=== PATIENT | female | born 1990 | race African-American/Black ===

== ENCOUNTER 2016-11-18 09:34 | Emergency (ER) | payer OTHER ==
[~2016-11-18] VITALS: Ht 165.1 cm; Wt 91.6 kg
--- NOTE | ~2016-11-18 | EKG ---
PATIENT: SHERI BUITRAGO UNIT #: [id number] Ventricular Rate: 75 BPM Atrial Rate: 75 BPM P-R Interval: 146 ms QRS Duration: 84 ms Q-T Interval: 372 ms QTC Calculation(Bezet): 415 ms P [place]: 27 degrees Calculated R [place]: 67 degrees Calculated T [place]: 27 degrees Diagnosis Line: Normal sinus rhythm Diagnosis Line: Normal ECG Diagnosis Line: No previous ECGs available Diagnosis Line: Confirmed by THEODORE COKER MD ([id number]) on Diagnosis Line: 11/19/2016 5:04:03 PM INTERPRETING MD: JOHN PAUL CASSIDY
--- NOTE | ~2016-11-18 | CR63 ---
[facility] A Service of [facility] RADIOLOGY TEXT RESULTS PATIENT: SHERI BUITRAGO LOCATION: [facility] : 90 UNIT #: [id number] AGE: [address]: Jessica Meyer SEX: F ORDER DR: [id number] [facility] [address] [place], [place] [address] [id number] E MR#: [id number] Acc #: [id number] NAME: SHERI BUITRAGO. : 1990 SEX: F STUDY DATE/TIME: 11/18/2016 UNIT: [facility] ROOM: STUDY DESCRIPTION: CR Chest 2 View Attending Physician: Jessica Meyer Pa-C Ordering Physician: Jessica Meyer Pa-C MEDICAL IMAGING REPORT This report is preliminary unless electronic signature is present EXAM Chest 2 views 11/18/2016 1106 hours HISTORY 26-year-old woman complaining of chest pain and shortness of air this morning. COMPARISON None. FINDINGS Upright PA and lateral views of the chest demonstrate normal cardiac, mediastinal and hilar contours. The lungs are clear. There is no pleural effusion or pneumothorax. IMPRESSION No acute cardiopulmonary findings. Dictated by... Ava Mchugh M.D. THIS IS AN ELECTRONICALLY VERIFIED REPORT Ava Mchugh M.D. at 11/18/2016 6:53 PM MARKUS/charles TD: 11/18/2016 17:15 JOB #: [id number] MEDICAL IMAGING REPORT Page 1 of 1 COPY
--- NOTE | ~2016-11-18 | CT16 ---
[facility] A Service of [facility] RADIOLOGY TEXT RESULTS PATIENT: SHERI BUITRAGO LOCATION: [facility] : 90 UNIT #: [id number] AGE: [address]: Jessica Meyer SEX: F ORDER DR: [id number] [facility] [address] [place], [place] [address] [id number] E MR#: [id number] Acc #: [id number] NAME: SHERI BUITRAGO. : 1990 SEX: F STUDY DATE/TIME: UNIT: [facility] ROOM: STUDY DESCRIPTION: CT Angio Chest for PE Attending Physician: Jessica Meyer Pa-C Ordering Physician: Jessica Meyer Pa-C Primary Care Physician: Generic Doctor Not In System MEDICAL IMAGING REPORT This report is preliminary unless electronic signature is present EXAM CT angiogram of the chest for pulmonary embolism 11/18/2016 1255 hours HISTORY 26-year-old woman with chest pain and shortness of air since 0800 hours. Elevated D-dimer at 1119. Evaluate for pulmonary embolism. COMPARISON Chest x-ray 11/18/[address] angiographic images were obtained from the lung apices through the adrenal glands. 3-D sagittal and coronal reconstructions were performed. Contrast was Isovue-370 80 mL IV. Total exam DLP 635 mGy - cm. This CT exam was performed with one or more of the following radiation dose reduction techniques: automatic exposure control, adjustment of mA and/or kV according to patient size, and iterative reconstruction. FINDINGS Images through the thoracic inlet demonstrate mild enlargement of thyroid gland without discrete lesion. There is no supraclavicular adenopathy. Images through the chest demonstrate diagnostic quality opacification of the pulmonary arteries which are normal in caliber. No filling defects are seen to suggest the presence of pulmonary emboli. The aorta is normal in caliber without dissection. Cardiac chambers and pericardium are normal. There is no pathologic adenopathy. There is a small amount residual thymic tissue in the anterior mediastinum felt benign. The lungs are clear. There is trace pleural thickening or pleural fluid at the extreme lung bases only. ST[facility] A Service of [facility] & [facility] RADIOLOGY TEXT RESULTS PATIENT: SHERI BUITRAGO LOCATION: [facility] : 90 UNIT #: [id number] AGE: [address]: Jessica Meyer SEX: F ORDER DR: Limited views through the upper abdomen are negative. IMPRESSION 1. No evidence of pulmonary embolism. Normal aorta. 2. The lungs are clear without pericardial fluid. There is trace dependent pleural fluid or pleural thickening at the bases only. 3. Limited views through the upper abdomen are negative. Dictated by... Ava Mchugh M.D. THIS IS AN ELECTRONICALLY VERIFIED REPORT Ava Mchugh M.D. at 11/19/2016 9:23 AM MARKUS/calvin TD: 11/18/2016 21:30 JOB #: [id number] MEDICAL IMAGING REPORT Page 1 of 1 COPY
[~2016-11-18 09:34] MED LIST: ATARAX PO; BENADRYL PO; FLONASE 0.05% N16 G1 IH; LOTRISONE CREAM45 GM TOP; MEDROL PO; PHENERGAN25 MG PO; PREDNISONE PO; PREDNISONE50 MG PO
[2016-11-18 10:48] LABS: BASOPHIL% 0.3 % (0-2.5); EOSINOPHIL# 0.2 X10e3 (0-0.7); EOSINOPHIL% 1.4 % (0.0-7.0); HEMATOCRIT 42.3 % (35.0-45.0); HEMOGLOBIN 13.8 gm/dL (12.0-16.0); LYMPHOCYTE% 24.6 % (17.0-45.0); MEAN CELL VOLUME 78.9 FL (83-96); MEAN CORPUSCULAR HEMOGLOBIN 25.8 PG (28-34); MEAN CORPUSCULAR HGB CONC 32.7 g/dL (30-36); MEAN PLATELET VOLUME 7.3 FL (6.5-11.5); MONOCYTE# 0.8 X10e3 (0-1.0); MONOCYTE% 6.5 % (3.0-12.0); NEUTROPHIL# 8.2 X10e3 (1.5-7.1); NEUTROPHIL% 67.2 % (40-75); PLATELET COUNT 298 X10e3 (140-420); RED BLOOD COUNT 5.36 X10e (3.90-5.30); WHITE BLOOD COUNT 12.1 X10e3 (4.0-10.5)
[2016-11-18 10:53] LABS: DIFF IND NO
[2016-11-18 11:12] LABS: ALBUMIN SERUM 3.8 g/dL (3.5-5.0); ALKALINE PHOSPHATASE 90 U/L (32-92); ALT (SGPT) 28 U/L (10-40); AST (SGOT) 23 U/L (10-42); BILIRUBIN,TOTAL 0.3 mg/dL (0.2-2.0); BLOOD UREA NITROGEN 5 mg/dL (9-23); BUN/CREATININE RATIO 6.25; CALCIUM SERUM 8.6 mg/dL (8.4-10.2); CARBON DIOXIDE 23 mmol/L (22-31); CHLORIDE 105 mmol/L (100-111); CREATININE SERUM 0.8 mg/dL (0.6-1.4); GLUCOSE FASTING 94 mg/dL (70-110); POTASSIUM 3.1 mmol/L (3.5-5.1); PROTEIN TOTAL SERUM 7.1 g/dL (6.0-8.3); SODIUM 134 mmol/L (135-145)
[2016-11-18 11:15] LABS: BILIRUBIN, DIRECT <0.1 mg/dL (0.0-0.2); BILIRUBIN,INDIRECT 0.2 mg/dL (0.0-0.9)
[2016-11-18 11:56] LABS: POC - CKMB <1.0 ng/mL (0.0-7.9); POC - TROPONIN <0.05 ng/mL (<=0.05)
[2016-11-18 12:40] LABS: POC - CKMB <1.0 ng/mL (0.0-7.9); POC - TROPONIN <0.05 ng/mL (<=0.05)
== END 2016-11-18 14:24 | disposition home or self-care (01) ==
LOC: CED 09:34
PROVIDERS: Physician Assistant Medical
DX: R07.89 Other chest pain (principal); E87.6 Hypokalemia; F17.210 Nicotine dependence, cigarettes, uncomplicated; Z88.0 Allergy status to penicillin; Z88.8 Allergy status to other drugs, medicaments and biological substances
CPT/HCPCS: 36415; 71020; 71275; 80048; 80076; 82553; 84484; 85025; 85379; 85610; 85730; 93005; 96372; 99285; J1885; Q9967